=== PATIENT | female | born 1970 | race Caucasian/White ===

== ENCOUNTER 2016-12-19 17:19 | Emergency (ER) | payer OTHER ==
[~2016-12-19] VITALS: Ht 172.7 cm; Wt 63.3 kg
[~2016-12-19 17:19] MED LIST: MELA1CAP9 PO; SULF800T23 PO; [UNRECOGNIZED DRUG - CODE] PO
[2016-12-19 17:25] VITALS: TEMP 36.9; Ht 172.7 cm; Wt 63.3 kg
--- NOTE | 2016-12-19 18:33 | EMERGENCY ROOM VISIT NOTE ---
History Report prepared by Siria: Nelson King Under the Supervision of: Dr. Franko Brito M.D. First contact with patient: 17:33 Chief Complaint: MENTAL HEALTH EVALUATION Stated Complaint: MENTAL HEALTH History of Present Illness The patient is a 46 year old female who presents to the Emergency Room for a mental health evaluation. Per nursing, the patient was brought into the ED by police. She reports that the patient has been texting threats to her tenants. The patient states that her phone, messenger, and facebook has been hacked. She states that she went to send a text message a couple of days ago to her ex tenant who she has not seen for two years and her messages were "jarbled". The patient states that her ex tenant and her boyfriend who is a [place] police lieutenant have been talking to each other. She states that she found out a couple of days ago that her father is involved in a federal court case and her ex boyfriend knew the whole time. The patient states that she tried to text her ex tenant that she is missing out and not that she will be missing if she does not stick with her. She states that she will be getting money and was going to give it to her ex tenant so the tenant could retract "lies that she has been saying about me to the town". She states that the ex tenant has been telling lies that could "make me look bad because I am a webb witness in the case". The patient states that people that she has been messaging on facebook have also told her that they have been getting "more garbage and messages that I never sent". She states that she noticed that the texts were sent wrong and tried to explain it to the ex tenant. The patient reports that she had a gift and note ready to give to her ex tenant apologizing. Per nursing, the patient also sent threatening text messages to another ex tenant saying "I have a gun and will kill myself or someone else if people don't start listening to me". She states that the tenant called the police on the patient. The police report that they had been trying to find the patient, but the patient told the tenants that she was in [place]. The patient admits that she has been there intermittently recently, but has been resting at home due to her Lyme's disease. Per police, they found the patient in her house and brought her in to the ED. The patient states that she usually take Biaxin and Amoxicillin for her Lyme's disease, which she has had for 20 years. She states that she has not been able to take these medications because of her insurance. The patient states that she has been feeling ill these last couple of days due to her Lyme's disease symptoms. She admits that she drinks one beer a day and has been smoking a couple of cigarettes a day. The patient reports that she does not have family here and they are located in [place] and [place]. She denies a history of mental health issues, diarrhea, burning urination, hematuria, suicidal ideations, and homicidal ideations. Source of History: patient, police, nursing staff Onset: a couple of days ago Position: other (global) Quality: other (global) Timing: intermittent Associated Symptoms: + fevers, + chills, No diarrhea, No urinary symptoms Review of Systems See HPI for pertinent positives and negatives. A total of ten systems were reviewed and were otherwise negative. Past Medical & Surgical Medical Problems: (1) Lyme disease (2) Migraine Family History Patient reports no known family medical history. Social History Smoking Status: Current Every Day Smoker Marital Status: single Housing Status: lives alone Occupation Status: unemployed Current/Historical Medications Scheduled Melatonin (Melatonin), Unknown Dose PO HS Allergies Coded Allergies: Shellfish (Verified Allergy, Intermediate, ANAPHYLAXIS, 12/19/16) Physical Exam Vital Signs Date Time Temp Pulse Resp B/P (MAP) Pulse Ox O2 Delivery O2 Flow Rate FiO2 12/20/16 03:42 82 18 129/71 96 12/19/16 21:12 87 18 136/82 98 Room Air 12/19/16 19:15 88 18 127/88 97 Room Air 12/19/16 17:25 36.9 127 20 130/69 98 Room Air Physical Exam GENERAL: Awake, alert, well-appearing, in no distress HENT: Normocephalic, atraumatic. Oropharynx unremarkable. EYES: Normal conjunctiva. Sclera non-icteric. NECK: Supple. No nuchal rigidity. FROM. No JVD. RESPIRATORY: Clear to auscultation. CARDIAC: Regular rate, normal rhythm. Extremities warm and well perfused. Pulses equal. ABDOMEN: Soft, non-distended. No tenderness to palpation. No rebound or guarding. No masses. RECTAL: Deferred. MUSCULOSKELETAL: Chest examination reveals no tenderness. The back is symmetrical on inspection without obvious abnormality. There is no CVA tenderness to palpation. No joint edema. LOWER EXTREMITIES: Calves are equal size bilaterally and non-tender. No edema. No discoloration. NEURO: Normal sensorium. No sensory or motor deficits noted. Cerebellar intact. Palm to palm and finger to nose intact. SKIN: No rash or jaundice noted. PSYCH: Bizarre fantastical thoughts including FBI investigation of her dad, infidelity of ex boy with ten, movie rights regarding FBI investigation of her father, monetary payout, confabulation and sending texts to former tenant who has not seen patient in two years. Paranoia of having her phone and computer being hacked that has garbled her intended messages. Incoherent sentence structure. Medical Decision & Procedures ER Provider Diagnostic Interpretation: Radiology results as stated below per my review and radiologist interpretation: HEAD WITHOUT CONTRAST (CT) CLINICAL HISTORY: 46 years-old Female with ams. Acute altered mental status TECHNIQUE: Multiple axial CT images of the head were obtained without contrast. A dose lowering technique was utilized adhering to the principles of ALARA. COMPARISON: CT head 10/11/2014 FINDINGS: No acute intracranial hemorrhage, midline shift, mass, large territorial ischemia or abnormal extra-axial collection. The calvarium is intact. The paranasal sinuses, mastoid air cells, and middle ear cavities are clear. IMPRESSION: No acute intracranial abnormality. The above report was generated using voice recognition software. It may contain grammatical, syntax or spelling errors. Electronically signed by: Phoenix Wilder M.D. 12/19/2016 7:06 PM Dictated Date/Time: 12/19/2016 6:57 PM CHEST ONE VIEW PORTABLE HISTORY: 46 years-old Female AMS acute altered mental status COMPARISON: None available TECHNIQUE: Portable upright AP view of the chest FINDINGS: Cardiomediastinal and hilar silhouettes are within normal limits. No pneumothorax or pleural effusion. Linear subsegmental bibasilar opacities are noted suggesting atelectasis. The bones are grossly intact. IMPRESSION: 1. No acute cardiopulmonary process. 2. Linear subsegmental bibasilar opacities suggest atelectasis. The above report was generated using voice recognition software. It may contain grammatical, syntax or spelling errors. Electronically signed by: Phoenix Wilder M.D. 12/19/2016 6:49 PM Dictated Date/Time: 12/19/2016 6:48 PM Laboratory Results 12/19/16 18:26 Red Blood Count 4.81, Mean Corpuscular Volume 85.9, Mean Corpuscular Hemoglobin 29.9, Mean Corpuscular Hemoglobin Concent 34.9, Mean Platelet Volume 8.5, Neutrophils (%) (Auto) 82.5, Lymphocytes (%) (Auto) 8.6, Monocytes (%) (Auto) 8.0, Eosinophils (%) (Auto) 0.4, Basophils (%) (Auto) 0.1, Neutrophils # (Auto) 13.31, Lymphocytes # (Auto) 1.38, Monocytes # (Auto) 1.29, Eosinophils # (Auto) 0.06, Basophils # (Auto) 0.01 12/19/16 18:26 Test 12/19/16 18:20 12/19/16 18:26 12/19/16 18:35 12/19/16 20:20 Urine Color DK YELLOW Urine Appearance CLEAR (CLEAR) Urine pH 5.5 (4.5-7.5) Urine Specific [place] 1.010 (1.000-1.030) Urine Protein 1+ (NEG) Urine Glucose (UA) NEG (NEG) Urine Ketones TRACE (NEG) Urine Occult Blood 1+ (NEG) Urine Nitrite NEG (NEG) Urine Bilirubin NEG (NEG) Urine Urobilinogen NEG (NEG) Urine Leukocyte Esterase NEG (NEG) Urine WBC (Auto) >30 /hpf (0-5) Urine RBC (Auto) 5-10 /hpf (0-4) Urine Hyaline Casts (Auto) 0 /lpf (0-5) Urine Epithelial Cells (Auto) >30 /lpf (0-5) Urine Bacteria (Auto) 2+ (NEG) Urine Crystals URIC ACID (NONE PRSENT) Urine Pathogenic Casts /lpf (0) White Blood Count 16.12 K/uL (4.8-10.8) Red Blood Count 4.81 M/uL (4.2-5.4) Hemoglobin 14.4 g/dL (12.0-16.0) Hematocrit 41.3 % (37-47) Mean Corpuscular Volume 85.9 fL (80-100) Mean Corpuscular Hemoglobin 29.9 pg (25-34) Mean Corpuscular Hemoglobin Concent 34.9 g/dl (32-36) Platelet Count 456 K/uL (130-400) Mean Platelet Volume 8.5 fL (7.4-10.4) Neutrophils (%) (Auto) 82.5 % Lymphocytes (%) (Auto) 8.6 % Monocytes (%) (Auto) 8.0 % Eosinophils (%) (Auto) 0.4 % Basophils (%) (Auto) 0.1 % Neutrophils # (Auto) 13.31 K/uL (1.4-6.5) Lymphocytes # (Auto) 1.38 K/uL (1.2-3.4) Monocytes # (Auto) 1.29 K/uL (0.11-0.59) Eosinophils # (Auto) 0.06 K/uL (0-0.5) Basophils # (Auto) 0.01 K/uL (0-0.2) RDW Standard Deviation 48.3 fL (36.4-46.3) RDW Coefficient of Variation 15.4 % (11.5-14.5) Immature Granulocyte % (Auto) 0.4 % Immature Granulocyte # (Auto) 0.07 K/uL (0.00-0.02) Anion Gap 8.0 mmol/L (3-11) Est Creatinine Clear Calc Drug Dose 117.1 ml/min Estimated GFR () 126.7 Estimated GFR (Non- 109.3 BUN/Creatinine Ratio 17.6 (10-20) Calcium Level 9.0 mg/dl (8.5-10.1) Magnesium Level 2.1 mg/dl (1.8-2.4) Total Bilirubin 0.2 mg/dl (0.2-1) Direct Bilirubin < 0.1 mg/dl (0-0.2) Aspartate Amino Transf (AST/SGOT) 10 U/L (15-37) Alanine Aminotransferase (ALT/SGPT) 16 U/L (12-78) Alkaline Phosphatase 76 U/L (45-117) Ammonia 11.4 umol/L (11-32) Total Protein 7.5 gm/dl (6.4-8.2) Albumin 3.4 gm/dl (3.4-5.0) Globulin 4.1 gm/dl (2.5-4.0) Albumin/Globulin Ratio 0.8 (0.9-2) Vitamin B12 Level 678 pg/mL (211-911) Folate 11.76 ng/mL (>5.38) Thyroid Stimulating Hormone (TSH) 3.260 uIu/ml (0.300-4.500) Ethyl Alcohol mg/dL < 3.0 mg/dl (0-3) Rapid Plasma Reagin NONREACTIVE (NONREACT) Lyme Disease IgG Antibody NEG (NEG) Lyme Disease IgM Antibody NEG (NEG) Bedside Glucose 124 mg/dl (70-90) Urine Opiates Screen NEG (NEG) Urine Methadone, Qualitative NEG (NEG) Urine Barbiturates NEG (NEG) Urine Phencyclidine (PCP) Level NEG (NEG) Ur Amphetamine/Methamphetamine NEG (NEG) MDMA (Ecstasy) Screen NEG (NEG) Urine Benzodiazepines Screen NEG (NEG) Urine Cocaine Metabolite NEG (NEG) Urine Marijuana (THC) NEG (NEG) Laboratory results reviewed by me Medications Administered Medications (Trade) Dose Ordered Sig/Benjamin Route Start Time Stop Time Status Last Admin Dose Admin Nicotine (Nicoderm Cq 14MG Patch) 1 patch NOW STAT TD 12/20/16 00:20 12/20/16 00:21 DC 12/20/16 01:09 1 PATCH ECG Indication: altered mental status Rate (beats per minute): 100 Rhythm: normal sinus Findings: no acute ischemic change, other (Normal axis) ED Course 1741: The patient was evaluated in room A07. A complete history and physical exam was performed. 1944: I reevaluated the patient and explained that her initial attempt to corroborate the story was unsuccessful and they did not know about the FBI investigation, monetary payout, or relationships. I further explained that we will try to get collateral, but the more we are unsuccessful the more it appears the story is untrue. She still asserted that it was true. I told her that I would be concerned for infection and need an LP. I explained the process and risk and benefits. She declined because she didn't think she needed it. I explained that if there was an infection, she could get worse, have a disability , and experience . She said this is not an infection and she is telling the truth. Medical Decision I reviewed the patient's past medical history, medications, and the nursing notes as described above. The patient's presentation and history were concerning for Bipolar, manic episode, schizophrenia, infection, PNA, bronchitis, UTI, dehydration, electrolyte abnormalities, metabolic encephalopathy, polypharm overdose, alcohol , meningitis. Patient is a 46-year-old woman with a past medical history per the patient of "chronic Lyme disease" who was previously on chronic amoxicillin since stopped because of insurance since then has been using a holistic machine which she "puts on the Lyme disease setting" and subsequently controlled her symptoms are [facility] emergency department under a 302 by police after sending threatening text messages to a former tenant who she has not seen in 2 years that were confabulating threatening to hurt the other person and her child. These text were copied by police and are on file. Patient defends these text saying that there was a misunderstanding as the techs got garbled by her hacked cell phone. However the story that she provides in defense is additionally bizarre and confabulated which includes her father being under investigation by the FBI, movie rights and financial "pay out" that are in question regarding that FBI story, infidelity of the patient's ex-boyfriend [place] police lieutenant with her former tenant, and further hacking of not only her phone computer and Facebook account. As the patient explains this story she also exhibits tangential thought process and out toward her sentence structure with mildly pressured speech. Patient denies any history of psychiatric conditions, he denies SI or HI. He acknowledges that her story is difficult to believe but asserts that it is true. Asks what are the circumstances that will require her to be to stay here. Explained that she was under a 302 by police which indicated that she could not leave until she was cleared from a psychiatric perspective and I further highlighted the fact that there was evidence in the form of these text that were threatening, bizarre, and nonsensical for which the patient agreed was true although she asserted that again it was due to her hacked phone. Given no clear history of a psychiatric disorder, will brought in psychiatric clearance evaluation, including CT of the head. Will attempt to obtain collateral in this respect however if no clear explanation exists for the patient's symptoms of delusions, psychosis and LP to be considered rule out sources of encephalopathy. As collateral continued to be collected demonstrating further support for the patient's altered mental status and delusional thinking discussed with her the recommendation for an LP to rule out FLOOR WINDER infections. However, the patient refused to have LP because she did not feel it was necessary given that her story, as she affirms, is true. She was able to explain back to me in her own words that are reason for doing the LP was to evaluate for infection or risks of not doing the procedure includes worse condition, disability, . Upon collection of further collateral current tendon reports that the patient was peculiar going as far back as 2 years ago and has progressively gotten more bizarre in her thinking toe recently where the tendon reports being afraid of her behaviors. Given that this behavior has been evolving over the past 2 years makes in acute infectious process less likely. Otherwise patient has a mild leukocytosis to 16 that is not specific. UA is a dirty sample the patient denies urinary symptoms so we'll wait for culture. cxr with no clear pneumonia but atelectasis or the patient has no respiratory symptoms. Lyme screen negative. Thus at this time the patient was medically cleared although MRI pending for final attempt to evaluate for any organic causes to her altered mental status. However yield of the studies typically is low in this setting. 302 signed. Thus bed search in progress. Patient signed out to Dr. Davila.. Medication Reconcilliation Current Medication List: was personally reviewed by me Blood Pressure Screening Patient's blood pressure: Elevated blood pressure Blood pressure disposition: Elevated BP felt to be situational Impression Primary Impression: Altered mental status, unspecified Scribe Attestation The scribe's documentation has been prepared under my direction and personally reviewed by me in its entirety. I confirm that the note above accurately reflects all work, treatment, procedures, and medical decision making performed by me. Departure Information Referrals No Doctor, Assigned (PCP) Forms HOME CARE DOCUMENTATION FORM, IMPORTANT VISIT INFORMATION Patient Instructions My [facility]
[2016-12-19 18:42] LABS: URINE APPEARANCE CLEAR (CLEAR); URINE COLOR DK YELLOW; URINE EPITHELIAL CELL AUTO >30 /lpf (0-5); URINE NITRITE NEG (NEG); URINE PH 5.5 (4.5-7.5); UROBILINOGEN NEG (NEG)
[2016-12-19 18:46] LABS: BASO % 0.1 %; BASO ABS # 0.01 K/uL (0-0.2); COMPLETE YES; EOS % 0.4 %; HEMATOCRIT 41.3 % (37-47); IG% 0.4 %; LYMPH % 8.6 %; LYMPH ABS # 1.38 K/uL (1.2-3.4); MEAN CELL VOLUME 85.9 fL (80-100); MEAN CORPUSCULAR HEMOGLOBIN 29.9 pg (25-34); MEAN CORPUSCULAR HGB CONC 34.9 g/dl (32-36); MEAN PLATELET VOLUME 8.5 fL (7.4-10.4); NEUT % 82.5 %; PLATELET COUNT 456 K/uL (130-400); RED BLOOD COUNT 4.81 M/uL (4.2-5.4); WHITE BLOOD COUNT 16.12 K/uL (4.8-10.8)
--- NOTE | 2016-12-19 18:50 | DIAGNOSTIC IMAGING REPORT ---
CHEST ONE VIEW PORTABLE HISTORY: 46 years-old Female AMS acute altered mental status COMPARISON: None available TECHNIQUE: Portable upright AP view of the chest FINDINGS: Cardiomediastinal and hilar silhouettes are within normal limits. No pneumothorax or pleural effusion. Linear subsegmental bibasilar opacities are noted suggesting atelectasis. The bones are grossly intact. IMPRESSION: 1. No acute cardiopulmonary process. 2. Linear subsegmental bibasilar opacities suggest atelectasis. The above report was generated using voice recognition software. It may contain grammatical, syntax or spelling errors. Electronically signed by: Phoenix Wilder M.D. 12/19/2016 6:49 PM Dictated Date/Time: 12/19/2016 6:48 PM
[2016-12-19 19:06] LABS: ALT/SGPT 16 U/L (12-78); AST/SGOT 10 U/L (15-37); BLOOD UREA NITROGEN 11 mg/dl (7-18); BUN/CREATININE RATIO 17.6 (10-20); CARBON DIOXIDE 23 mmol/L (21-32); CHLORIDE 109 mmol/L (98-107); GLUCOSE 110 mg/dl (70-99); MAGNESIUM 2.1 mg/dl (1.8-2.4); POTASSIUM 3.5 mmol/L (3.5-5.1); SODIUM 140 mmol/L (136-145)
--- NOTE | 2016-12-19 19:08 | DIAGNOSTIC IMAGING REPORT ---
HEAD WITHOUT CONTRAST (CT) CLINICAL HISTORY: 46 years-old Female with ams. Acute altered mental status TECHNIQUE: Multiple axial CT images of the head were obtained without contrast. A dose lowering technique was utilized adhering to the principles of ALARA. COMPARISON: CT head 10/11/2014 FINDINGS: No acute intracranial hemorrhage, midline shift, mass, large territorial ischemia or abnormal extra-axial collection. The calvarium is intact. The paranasal sinuses, mastoid air cells, and middle ear cavities are clear. IMPRESSION: No acute intracranial abnormality. The above report was generated using voice recognition software. It may contain grammatical, syntax or spelling errors. Electronically signed by: Phoenix Wilder M.D. 12/19/2016 7:06 PM Dictated Date/Time: 12/19/2016 6:57 PM
[2016-12-19 19:17] LABS: ALB/GLOB RATIO 0.8 (0.9-2); ALKALINE PHOSPHATASE 76 U/L (45-117)
[2016-12-19 19:19] LABS: MANUAL MICROSCOPIC REQUIRED? NO; REVIEW REQ? YES
[2016-12-19 19:25] LABS: URINE BILIRUBIN NEG (NEG)
[2016-12-19 19:46] LABS: LYME DISEASE AB IGM NEG (NEG)
[2016-12-19 19:47] LABS: LYME DISEASE AB IGG NEG (NEG)
[2016-12-19 20:44] LABS: BENZODIAZEPINE, URINE NEG (NEG); COCAINE,URINE NEG (NEG); PHENCYCLIDINE, URINE NEG (NEG)
--- NOTE | 2016-12-19 22:36 | DIAGNOSTIC IMAGING REPORT ---
BRAIN WITHOUT CONTRAST HISTORY: 46 years-old Female Early onset dementia / Altered mental status acute altered mental status. COMPARISON: CT head of same day TECHNIQUE: Multiplanar multisequence MRI the brain was obtained without contrast FINDINGS: No restricted diffusion to suggest acute ischemia. Midline structures including the corpus callosum, brainstem, optic chiasm, pituitary and pineal glands are unremarkable as seen on the sagittal T1 images. No cerebellar tonsillar herniation. There is no acute intracranial hemorrhage, midline shift, abnormal extra-axial collections, hydrocephalus or intracranial mass. Multifocal scattered subcentimeter foci of T2/FLAIR prolongation seen within the subcortical and periventricular white matter of the cerebral hemispheres bilaterally. No pathologic blooming artifact identified. Major flow voids at the level of the skull base are patent. Mastoid air cells are clear. Paranasal sinuses are also generally clear. The orbits, calvarium and soft tissues are unremarkable. IMPRESSION: 1. No acute intracranial abnormality. 2. Scattered subcentimeter foci of increased T2/FLAIR signal from the subcortical and periventricular white matter of the cerebral hemispheres bilaterally are nonspecific. Differential considerations would include early chronic microvascular ischemic changes, gliosis from chronic migraines or less likely demyelinating disease among other etiologies. The above report was generated using voice recognition software. It may contain grammatical, syntax or spelling errors. Electronically signed by: Phoenix Wilder M.D. 12/19/2016 10:35 PM Dictated Date/Time: 12/19/2016 10:30 PM
--- NOTE | 2016-12-19 23:32 | EMERGENCY ROOM VISIT NOTE ---
ED Visit Note First contact with patient: 22:36 The patient was taken in signout from Dr. Brito at the change of shift. Please see that note for details. The patient was pending MRI results and 302 placement. Patient's MRI does not reveal any acute findings. I met with the patient and discussed this with her.. She has any neurologic complaints. She has no headache. The patient is awake, alert and clear. She was offered a lumbar puncture by Dr. brito but refused. She has been accepted at the [facility]. Transportation will be arranged for further evaluation into the situation.
[2016-12-20] MEDS ORDERED: NICOTINE 14 MG/24 HR TDSY TD STA (00:20)
[2016-12-20 03:42] VITALS: BP 129/71; PULSE 82; O2SAT 96
[2016-12-20 07:04] LABS: RAPID PLASMA REAGIN NONREACTIVE (NONREACT)
== END 2016-12-20 03:43 ==
LOC: C.EDB 17:20 → C.EDA 12-20 03:43
DX: Z00.8 Encounter for other general examination (principal); R41.82 Altered mental status, unspecified; F17.210 Nicotine dependence, cigarettes, uncomplicated